=== PATIENT | male | born 1985 | race American Indian/Alaskan Native ===

== ENCOUNTER 2017-12-22 06:43 | Emergency (ER) | payer OTHER ==
[2017-12-22] MEDS ORDERED: EPINEPHrine 1 MG/ML SDV SUBCUT ONE (06:49)
[2017-12-22] MEDS ORDERED: diphenhydrAMINE 50 MG/ML SDV IVPUSH ONE (06:49)
[2017-12-22] MEDS ORDERED: methylPREDNISolone Sodium Succinate 125 MG/2 ML SDV IVPUSH ONE (06:49)
[2017-12-22] MEDS ORDERED: Albuterol 0.083% 2.5 MG/3 ML Neb Soln NEB ONE (06:49)
--- NOTE | 2017-12-22 06:49 | EDM.PDOC ---
<SatyaAdrianne pradhan Pierre - Last Filed: 12/22/17 06:44> ED HPI GENERAL MEDICAL PROBLEM - General Chief Complaint: Allergic Reaction Stated Complaint: ALERGIC REACTION SOB [id number] Time Seen by Provider: 12/22/17 06:44 Source of Information: Reports: Patient History Limitations: Reports: No Limitations - History of Present Illness INITIAL COMMENTS - FREE TEXT/NARRATIVE: c/o feeling like is on fire and having hard time breathing. Noted when woke up. Admits out drinking last ryan. Does not recall drinking anything unusal or anything else. Happened one time prior after eating [place]. Hand feel swollen. - Related Data Allergies Allergy/AdvReac Type Severity Reaction Status Date / Time venom-honey bee Allergy Anaphylactic Verified 05/20/16 05:58 [bee venom (honey bee)] Shock Home Meds: Home Meds . [No Known Home Meds] 05/19/16 [History] Past Medical History - Past Health History Medical/Surgical History: Denies Medical/Surgical History HEENT History: Reports: Other (See Below) Other HEENT History: REDDENED ITCHY EYES DURING SEASONAL CHANGES Cardiovascular History: Reports: None Respiratory History: Reports: None Gastrointestinal History: Reports: Chronic Constipation, Chronic Diarrhea, Gastritis, GERD, Other (See Below) Other Gastrointestinal History: RECTAL BLEEDING Genitourinary History: Reports: None Musculoskeletal History: Reports: None, Other (See Below) Other Musculoskeletal History: PATIENT STATES HE HAS ARTHRITIS, BUT HAS NOT BEEN DIAGNOSED WITH IT BY A PHYSICIAN Neurological History: Reports: Seizure, Other (See Below) Other Neuro History: 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 AND 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 AND WAS INTUBATED Psychiatric History: Reports: None Endocrine/Metabolic History: Reports: Obesity/BMI 30+ Hematologic History: Reports: None Immunologic History: Reports: None Oncologic (Cancer) History: Reports: None Dermatologic History: Reports: None - Infectious Disease History Infectious Disease History: Reports: Chicken Pox, MRSA, Other (See Below) Other Infectious Disease History: MRSA IN LEFT ANKLE - 'BIT BY A POISONOUS SPIDER'; PATIENT HAD MRSA TESTING AND IS NEGATIVE NOW - Past Surgical History Musculoskeletal Surgical History: Reports: Other (See Below) Social & Family History - Family History Family Medical History: Noncontributory - Caffeine Use Caffeine Use: Reports: Energy Drinks, Soda - Living Situation & Occupation Living situation: Reports: with Family ED ROS ALLERGIC REACTION - Review of Systems Review Of Systems: ROS reveals no pertinent complaints other than HPI. ED EXAM GENERAL NO PERIP PULSE - Physical Exam Exam: See Below Exam Limited By: No Limitations General Appearance: Alert, Anxious, Mild Distress, Other (strong odor ETOH) Eye Exam: Bilateral Eye: EOMI Ears: Normal External Exam Nose: Normal Inspection Throat/Mouth: No Airway Compromise, Inflammation (mild) Head: Atraumatic, Normocephalic Neck: Normal Inspection, Full Range of Motion. No: Lymphadenopathy (L), Lymphadenopathy (R) Respiratory/Chest: Decreased Breath Sounds. No: Rales, Rhonchi, Wheezing Cardiovascular: Normal Peripheral Pulses, Regular Rate, Rhythm GI/Abdominal: Normal Bowel Sounds Extremities: Normal Range of Motion, Redness Psychiatric: Anxious Skin Exam: Warm, Dry, Intact, Rash (erythematous red patchy areas to forearms, back neck and hands. ) Course - Vital Signs Last Recorded V/S: Last Vital Signs Temp 36.8 C 12/22/17 06:47 Pulse 114 H 12/22/17 06:47 Resp 20 12/22/17 06:47 BP 146/94 H 12/22/17 06:47 Pulse Ox 98 12/22/17 06:47 - Orders/Labs/Meds Orders: Active Orders 24 hr Category Date Time Status RT Aerosol Therapy [RC] ASDIRECTED Care 12/22/17 06:51 Active Meds: Medications Discontinued Medications Generic Name Dose Route Start Last Admin Trade Name Marianoq PRN Reason Stop Dose Admin Albuterol 2.5 mg 12/22/17 06:49 12/22/17 06:58 Proventil Neb Soln NEB 12/22/17 06:50 2.5 mg ONETIME ONE Administration Diphenhydramine HCl 25 mg 12/22/17 06:49 12/22/17 07:00 Benadryl IVPUSH 12/22/17 06:50 25 mg ONETIME ONE Administration Epinephrine HCl 0.3 mg 12/22/17 06:49 12/22/17 07:00 Adrenalin SUBCUT 12/22/17 06:50 0.3 mg ONETIME ONE Administration Methylprednisolone Sodium Succinate 125 mg 12/22/17 06:49 12/22/17 06:59 Solu-Medrol IVPUSH 12/22/17 06:50 125 mg ONETIME ONE Administration Departure - Departure Disposition: Home, Self-Care 01 Clinical Impression: Allergic urticaria - Discharge Information Instructions: Hives, Tris-ni-Sdxn, Allergies, Adult, [id number] Forms: ED Department Discharge Additional Instructions: Rx: Prednisone 20mg Rx: Zyrtec 10mg Follow up in clinic in the next 3 to 5 days for recheck and consideration of allergy testing. <Vishal Johansen - Last Filed: 12/22/17 07:29> ED HPI GENERAL MEDICAL PROBLEM - History of Present Illness INITIAL COMMENTS - FREE TEXT/NARRATIVE: I assumed care of pt from Adrianne WHITE at 0700HR shift change with pt medicated per Adrianne's order, and allergy Sx's resolved. ED EXAM GENERAL NO PERIP PULSE - Physical Exam Comments: Per my exam at 0722HRS pt with resolved urticaria, no residual rash at this time. Lungs now clear to auscultation B/L. No swelling of face, lips, tongue, or visible throat. Departure - Departure Time of Disposition: 07:28 Condition: Good - Discharge Information *PRESCRIPTION DRUG MONITORING PROGRAM REVIEWED*: Not Applicable *COPY OF PRESCRIPTION DRUG MONITORING REPORT IN PATIENT [place]: Not Applicable
[2017-12-22 06:50] VITALS: BP 146/94
== END 2017-12-22 07:31 | disposition home or self-care (01) ==
LOC: DL.ED 06:43
DX: L50.0 Allergic urticaria (principal); Z91.030 Bee allergy status
CPT/HCPCS: 96372; 96374; 96375; 99283; J0171; J1200; J2930; J7613-GY

== ENCOUNTER 2019-03-25 22:05 | Emergency (ER) | payer OTHER ==
[2019-03-25] MEDS ORDERED: methylPREDNISolone Sodium Succinate 125 MG/2 ML SDV IVPUSH ONE (22:12)
[2019-03-25] MEDS ORDERED: Sodium Chloride 0.9% 1,000 ML IV ONE (22:12)
--- NOTE | 2019-03-25 22:14 | EDM.PDOC ---
ED HPI GENERAL MEDICAL PROBLEM - General Stated Complaint: ALLERGIC REACTION Time Seen by Provider: 03/25/19 22:13 Source of Information: Reports: Patient, Family History Limitations: Reports: No Limitations - History of Present Illness INITIAL COMMENTS - FREE TEXT/NARRATIVE: pt states ate lassagne and felt throat was swelling spouse gave 4x benadryl 25mg [employer]. pt anxious - Related Data Allergies Allergy/AdvReac Type Severity Reaction Status Date / Time venom-honey bee Allergy Anaphylactic Verified 05/20/16 05:58 [bee venom (honey bee)] Shock lemon Allergy Anaphylactic Uncoded 03/14/18 09:47 Shock Home Meds: Home Meds . [No Known Home Meds] 05/19/16 [History] Past Medical History - Past Health History Medical/Surgical History: Denies Medical/Surgical History HEENT History: Reports: Other (See Below) Other HEENT History: REDDENED ITCHY EYES DURING SEASONAL CHANGES Cardiovascular History: Reports: None Respiratory History: Reports: None Gastrointestinal History: Reports: Chronic Constipation, Chronic Diarrhea, Gastritis, GERD, Other (See Below) Other Gastrointestinal History: RECTAL BLEEDING Genitourinary History: Reports: None Musculoskeletal History: Reports: None, Other (See Below) Other Musculoskeletal History: PATIENT STATES HE HAS ARTHRITIS, BUT HAS NOT BEEN DIAGNOSED WITH IT BY A PHYSICIAN Neurological History: Reports: Seizure, Other (See Below) Other Neuro History: 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 AND 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 AND WAS INTUBATED Psychiatric History: Reports: None Endocrine/Metabolic History: Reports: Obesity/BMI 30+ Hematologic History: Reports: None Immunologic History: Reports: None Oncologic (Cancer) History: Reports: None Dermatologic History: Reports: None - Infectious Disease History Infectious Disease History: Reports: Chicken Pox, MRSA, Other (See Below) Other Infectious Disease History: MRSA IN LEFT ANKLE - 'BIT BY A POISONOUS SPIDER'; PATIENT HAD MRSA TESTING AND IS NEGATIVE NOW - Past Surgical History Musculoskeletal Surgical History: Reports: Other (See Below) Social & Family History - Family History Family Medical History: Noncontributory - Caffeine Use Caffeine Use: Reports: Energy Drinks, Soda - Living Situation & Occupation Living situation: Reports: with Family ED ROS ALLERGIC REACTION - Review of Systems Review Of Systems: Comprehensive ROS is negative, except as noted in HPI. ED EXAM GENERAL NO PERIP PULSE - Physical Exam Exam: See Below Exam Limited By: No Limitations General Appearance: Alert, WD/WN, Anxious, Mild Distress, Other Ears: Hearing Grossly Normal Throat/Mouth: Normal Voice, No Airway Compromise. No: Dysphagia Head: Atraumatic Neck: Non-Tender, Full Range of Motion Respiratory/Chest: No Respiratory Distress, Rhonchi Cardiovascular: Regular Rate, Rhythm GI/Abdominal: Soft, Non-Tender Neurological: Alert, Oriented, Normal Cognition, Normal Gait, No Motor/Sensory Deficits Psychiatric: Anxious Skin Exam: Warm, Dry, Normal Color Lymphatic: No Adenopathy Course - Vital Signs Last Recorded V/S: Last Vital Signs Temp 36.3 C 03/25/19 22:14 Pulse 107 H 03/25/19 22:14 Resp 26 H 03/25/19 22:14 BP Pulse Ox 100 03/25/19 22:14 - Orders/Labs/Meds Orders: Active Orders 24 hr Category Date Time Status Sodium Chloride 0.9% [Normal Saline] 1,000 ml Med 03/25/19 22:12 Active IV .BOLUS Medication Orders Sodium Chloride (Normal Saline) 1,000 mls @ 999 mls/hr IV .BOLUS ONE Stop: 03/25/19 23:12 Last Admin: 03/25/19 22:22 Dose: 999 mls/hr Labs: Laboratory Tests 03/25/19 03/25/19 03/25/19 Range/Units 22:10 22:10 22:10 WBC 8.9 (5.0-10.0) 10^3/uL RBC 4.92 (4.6-6.2) 10^6/uL Hgb 16.0 (14.0-18.0) g/dL Hct 45.3 (40.0-54.0) % MCV 92.1 (80-100) fL MCH 32.5 (27.0-34.0) pg MCHC 35.3 H (33.0-35.0) g/dL Plt Count 280 (150-450) 10^3/uL Neut % (Auto) 53.1 (42.2-75.2) % Lymph % (Auto) 36.2 (20.5-50.1) % [place] % (Auto) 9.3 H (2-8) % Eos % (Auto) 1.2 (1.0-3.0) % Baso % (Auto) 0.2 (0.0-1.0) % Sodium 138 (135-145) mmol/L Potassium 3.7 (3.6-5.0) mmol/L Chloride 105 (101-111) mmol/L Carbon Dioxide 21.0 (21.0-31.0) mmol/L Anion Gap 15.7 BUN 14 (7-18) mg/dL Creatinine 0.9 (0.6-1.3) mg/dL Est Cr Clr Drug Dosing 114.00 mL/min Estimated GFR (MDRD) > 60 BUN/Creatinine Ratio 15.55 Glucose 104 (74-105) mg/dL Calcium 8.9 (8.4-10.2) mg/dl Total Bilirubin 0.5 (0.2-1.0) mg/dL AST 24 (10-42) IU/L ALT 22 (10-60) IU/L Alkaline Phosphatase 91 (42-121) IU/L Total Protein 7.6 (6.7-8.2) g/dl Albumin 4.4 (3.2-5.5) g/dl Globulin 3.2 Albumin/Globulin Ratio 1.38 Ethyl Alcohol 160 mg/dL Meds: Medications Generic Name Dose Route Start Last Admin Trade Name Freq PRN Reason Stop Dose Admin Sodium Chloride 1,000 mls @ 999 mls/hr 03/25/19 22:12 03/25/19 22:22 Normal Saline IV 03/25/19 23:12 999 mls/hr .BOLUS ONE Administration Discontinued Medications Generic Name Dose Route Start Last Admin Trade Name Freq PRN Reason Stop Dose Admin Methylprednisolone Sodium Succinate 125 mg 03/25/19 22:12 03/25/19 22:22 Solu-Medrol IVPUSH 03/25/19 22:13 125 mg ONETIME ONE Administration - Re-Assessments/Exams Free Text/Narrative Re-Assessment/Exam: 03/25/19 22:48 re-exam; feeling better presently 03/25/19 23:07 re-exam; feels sleepy from benadryl. no c/o Departure - Departure Time of Disposition: 23:08 Disposition: Home, Self-Care 01 Condition: Good Clinical Impression: Allergic reaction Qualifiers: Encounter type: initial encounter Qualified Code(s): T78.40XA - Allergy, unspecified, initial encounter - Discharge Information Forms: ED Department Discharge Additional Instructions: 1) take benadryl 50mg twice daily as needed for hives 2) rest 3) follow up at clinic rx given; chloe peck Sepsis Event Note - Focused Exam Vital Signs: Vital Signs Temp Pulse Resp Pulse Ox 03/25/19 22:14 36.3 C 107 H 26 H 100 Date Exam was Performed: 03/25/19 Time Exam was Performed: 23:07 - My Orders Last 24 Hours: My Active Orders 03/25/19 22:12 Sodium Chloride 0.9% [Normal Saline] 1,000 ml IV .BOLUS - Assessment/Plan Last 24 Hours: My Active Orders 03/25/19 22:12 Sodium Chloride 0.9% [Normal Saline] 1,000 ml IV .BOLUS
[2019-03-25 22:22] VITALS: PULSE 107
[2019-03-25 22:57] LABS: ANION GAP 15.7; CHLORIDE,CL 105 mmol/L (101-111); SODIUM,NA 138 mmol/L (135-145)
== END 2019-03-25 23:14 | disposition home or self-care (01) ==
LOC: DL.ED 22:05
DX: T78.40XA Allergy, unspecified, initial encounter (principal); Z91.018 Allergy to other foods; Z91.030 Bee allergy status
CPT/HCPCS: 36415; 80053; 80320; 85025; 96361; 96374; 99283; J2930; J7030; G0480

== ENCOUNTER 2021-05-26 00:13 | Emergency (ER) | payer OTHER ==
[2021-05-26 00:37] VITALS: BP 137/95; PULSE 92
== END 2021-05-26 01:12 | disposition left against medical advice (07) ==
LOC: DL.ED 00:13
DX: T78.40XA Allergy, unspecified, initial encounter (principal); E66.9 Obesity, unspecified; K21.9 Gastro-esophageal reflux disease without esophagitis; Z68.30 Body mass index [BMI] 30.0-30.9, adult; Z91.030 Bee allergy status; Z91.018 Allergy to other foods; Z72.0 Tobacco use; Z53.21 Procedure and treatment not carried out due to patient leaving prior to being seen by health care provider